=== PATIENT | male | born 1960 | race Caucasian/White ===

== ENCOUNTER 2017-02-19 13:33 | Day surgery (SDC) | payer MEDICARE, BC ==
[2017-02-19] MEDS ORDERED: LIDOCAINE 2% MDV (20MG/ML) 20ML VIAL IV ONE (13:34)
[2017-02-19] MEDS ORDERED: PROPOFOL 10 MG/ML VIAL IV ONE (13:34)
--- NOTE | 2017-02-20 12:40 | Operative Note ---
DATE OF SURGERY: 02/19/2017 REFERRING PROVIDER: Tara Santiago MD, FACP PREOPERATIVE DIAGNOSIS: Colon cancer screening, average risk. POSTOPERATIVE DIAGNOSIS: Mild sigmoid diverticulosis. OPERATION: SCREENING COLONOSCOPY. Preparation Quality: Good to excellent. Estimated Blood Loss: None. Samples Obtained: None. Complications: None apparent. PROCEDURE: After informed consent was obtained, the patient was placed in the left lateral decubitus position in the endoscopy suite, sedated and monitored by the Department of Anesthesia. Digital rectal exam was unremarkable. A well-lubricated PCF-180 colonoscope was inserted into the rectum and advanced to the cecum. The preparation quality was good to excellent. The ileocecal valve, appendiceal orifice, ascending colon, transverse colon, and descending colon were free from inflammatory changes, mass lesions or polyps. The sigmoid colon revealed mild diverticular changes. The rectum was unremarkable in forward and in J-turn view. The endoscope was straightened, the rectal ampulla deflated and the endoscope was removed. RECOMMENDATIONS: Patient should stop smoking. He should follow a high-fiber diet and use a fiber supplement such as Citrucel or Metamucil. I would recommend a repeat colonoscopy in 10 years or sooner should some symptoms or conditions warrant. As always, thank you for allowing me to participate in the health care of your patients. CC: TARA SANTIAGO MD, FACP [facility]
== END 2017-02-19 14:47 | disposition home or self-care (01) ==
LOC: HOP 13:33
PROVIDERS: ATTEND Internal Medicine Gastroenterology
DX: Z12.11 Encounter for screening for malignant neoplasm of colon (principal); K57.30 Diverticulosis of large intestine without perforation or abscess without bleeding; I10 Essential (primary) hypertension; E78.00 Pure hypercholesterolemia, unspecified
CPT/HCPCS: 00810; G0121

== ENCOUNTER 2018-08-10 04:58 | Day surgery (SDC) | payer MEDICARE, BC ==
[2018-08-10] MEDS ORDERED: PROPOFOL 10 MG/ML VIAL IV ONE (04:59)
[2018-08-10] MEDS ORDERED: KETOROLAC 30 MG/ML VIAL IVP ONE (04:59)
[2018-08-10] MEDS ORDERED: LIDOCAINE 2% MDV (20MG/ML) 20ML VIAL IV ONE (04:59)
[2018-08-10] MEDS ORDERED: RINGERS SOLUTION,LACTATED 1,000 ML IV ONE ×2 (05:39→07:05)
[2018-08-10] MEDS ORDERED: ACETAMINOPHEN 1,000 MG/100 ML BTL IVPB ONE (06:00)
[2018-08-10] MEDS ORDERED: BUPIVACAINE 0.25% W/EPI MPF 30ML VIAL SQ ONE (06:58)
[2018-08-10] MEDS ORDERED: BETAMETHASONE 6 MG/1 ML 5ML VIAL IM ONE (06:58)
[2018-08-10] MEDS ORDERED: HYDROCODONE/APAP 7.5/325MG TABLET PO ONE (07:28)
--- NOTE | 2018-08-12 08:20 | Operative Note ---
DATE OF SURGERY: 08/10/2018 SURGEON: Samson Hernandez DO PREOPERATIVE DIAGNOSIS: Adhesive capsulitis of the left shoulder. POSTOPERATIVE DIAGNOSIS: Adhesive capsulitis of the left shoulder. OPERATION: 1. Manipulation under anesthesia, left shoulder. 2. Injection left shoulder. DESCRIPTION OF PROCEDURE: This 57-year-old male was taken to the operating room and placed in the supine position on the operating room table. General anesthetic was administered. The left shoulder was taken through range of motion. The patient was found to be restricted at approximately 75 degrees of abduction, 160 degrees of forward flexion, and external rotation at approximately 60 degrees. We subsequently then gently manipulated the glenohumeral joint stabilizing the joint with one hand and manipulating the elbow with the other. We were able to take him to 180 degrees of forward flexion with disruption of cicatrix, and this also was seen with abduction to 120 degrees and external rotation to about 85 degrees. We could not get full external rotation. We were able to get full adduction, extension, and internal rotation to 80 degrees. The shoulder was again taken through range of motion and these findings confirmed. The anterior aspect of the shoulder was then prepped with alcohol, and a 22- gauge spinal needle was easily advanced into the glenohumeral joint. It was subsequently injected with 2 mL of Celestone Soluspan and 4 mL of 0.25% Marcaine with epinephrine. Sterile dressings were applied and the patient was taken to the recovery room in satisfactory condition. GROSS PATHOLOGY: This patient had previous surgery on his left shoulder many years ago and sustained injury to his left shoulder falling in March and demonstrating stiffening of the joint capsule and limited range of motion. He was subsequently taken through range of motion and disrupting the cicatrix as described above. CC: TARA MORA MD, FACP [facility]
== END 2018-08-10 07:42 | disposition home or self-care (01) ==
LOC: SUR 04:58
PROVIDERS: ATTEND Orthopaedic Surgery
DX: M75.02 Adhesive capsulitis of left shoulder (principal); I10 Essential (primary) hypertension; K21.9 Gastro-esophageal reflux disease without esophagitis; E78.00 Pure hypercholesterolemia, unspecified
CPT/HCPCS: 23700; 20610; 01620; J1885; J7120